=== PATIENT | female | born 1960 | race Caucasian/White ===

== ENCOUNTER 2021-06-17 11:56 | Outpatient (CLI) | payer MEDICARE, MEDICAID, SELFPAY ==
--- NOTE | ~2021-06-17 | PE_ITS ---
EXAMINATION: PET skull to mid thigh DATE: 06/17/2021 13:58 INDICATION: Carcinoma of supraglottic larynx. TECHNIQUE: Blood glucose level was 154 mg/dL. 10.939 mCi of 18-fluorodeoxyglucose (18-FDG) was admini stered i.v. Low dose computed tomography (CT) images were acquired from the base of the brain to the proximal thighs for attenuation correction and anatomic localization. Automated exposure control was employed. Dose-length product (DLP) was 1218 mGy-cm. Positron emission tomography (PET) images were a cquired in the same distribution. COMPARISON: CT abdomen and pelvis 08/29/2005 FINDINGS: Head/neck: There is increased activity in the oral cavity, floor of mouth, muscles of mastication, gl ottis, paraspinal muscles, and scalene muscles without abnormal CT correlate, likely physiologic. The re is thickening of the mucosal space of the pharynx and larynx without increased activity, likely ch anges of radiation therapy. There are no pathologically enlarged lymph nodes. Chest: There is mild atelectasis in the lungs. No pleural effusion. The heart size is normal. No chang cardial effusion. There are no pathologically enlarged lymph nodes. There is increased activity in so me of the musculature with abnormal CT correlate, likely physiologic. Abdomen/pelvis/proximal thighs: The liver demonstrates surface nodularity. There is moderate splenome balaji. There are gallstones in the gallbladder, which is normal in size. The adrenal glands and kidney s are normal. There are no dilated loops of bowel. There is no free intraperitoneal fluid. There are no pathologically enlarged lymph nodes. There is no free intraperitoneal fluid. There is no osseous m alignancy. IMPRESSION: 1. No evidence of metastatic disease. 2. Liver surface nodularity suspicious for cirrhosis. 3. Moderate splenomegaly. Reviewed, dictated and finalized at location B. SUPERVISOR
[2021-06-17 12:24] LABS: Glucose Point of Care 154 mg/dl (65-105)
== END 2021-06-17 11:57 | disposition home or self-care (01) ==
LOC: ANHIMG 12:02
PROVIDERS: Visit Provider Radiology Radiation Oncology
DX: C32.1 Malignant neoplasm of supraglottis (principal); Z92.3 Personal history of irradiation; R16.1 Splenomegaly, not elsewhere classified
CPT/HCPCS: 78815; A9552

== ENCOUNTER 2021-08-11 14:00 | Outpatient (RCR) | payer MEDICARE, MEDICAID, SELFPAY ==
--- NOTE | 2021-07-23 13:45 | PTOPEVAL ---
PHYSICAL THERAPY EVALUATION AND PLAN OF CARE 07-23-21 Thank you for referring Rhoda Michelle to [facility].? She is scheduled to be seen for therapy? 1x/week for 6 weeks. Due to transportation issues, she request only once/wk. Please review, sign, date and return this plan of care NATALIA. I agree with and certify that the following plan of care is medically necessary. Referring Physician Date Attending Provider: Andrea Gusman MD Past Medical History Source of Past Medical History Patient Neurological History Hx Neurological Disorders No Significant History Cardiovascular History Hx Cardiac Disorders No Significant History Respiratory History Hx Chronic Obstructive Pulmonary Disease Yes (COPD) Hx Sleep Apnea Yes: BiPap at night, oxygen at night Hx Other Respiratory Disorders Yes: allergies and sinus issues, since a child- Gastrointestinal History Hx Gastrointestinal Disorders No Significant History Genitourinary History Hx Other Genitourinary Disorders Yes: urinary incontinence Musculoskeletal History Hx Arthritis Yes: hands,R elbow, knees, feet, hips Hx Back Pain Yes Hx Orthopedic Surgery Yes: L foot fracture/ORIF Endocrine History Hx Diabetes Yes: meds Reproductive History Hx Other Reproductive Disorders Yes: hysterectomy, exploratory surgery prior to hysterectomy Other History Hx Other Medical Conditions Yes: obesity Evaluation Information Problem Diagnosis lymphedema of head/neck/face Onset Feb 2021 Prior Level of Function Activity Level (Last 3 Months) Occupation disabled due to COPD Activity of Daily Living Ability Independent Indoor/Home Mobility Independent Community Mobility Independent Stairs Ability Independent Functional Cognition (Planning, Shopping Independent , Taking Medications) Cooking Yes Cleaning Yes Laundry Yes Shopping Yes Driving Yes Comments Additional Prior Level of Function 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
--- NOTE | 2021-08-11 15:41 | PCPTNOTE ---
pt signed consent for her info to be released to [employer] for compression garment; I faxed her face sheet, eval and dr order to [facility] [facility] and request for a Large Sigvaris compression garment for neck and mandible.
--- NOTE | 2021-08-18 09:26 | PCPTNOTE ---
pt called and canceled today's appt, I received message 5 minutes before her appt time;
--- NOTE | 2021-09-03 11:44 | PCPTNOTE ---
pt has not been here since 08-11-21 for treatment, called pt to check on her; she stated her car broke down and does not have a way to get to therapy. Stated she wants to continue therapy. Discussed with her the need to return soon, due to plan of care is up. Discussed the compression garment and self MLD with her, she reports she cannot afford the compression garment. She understands that it is important. Instructed her to call NATALIA when she can get in for therapy.
--- NOTE | 2021-09-23 09:16 | PCPTNOTE ---
PHYSICAL THERAPY DISCHARGE 09-23-21 Attending Provider: Andrea Gusman MD Patient:Rhoda Michelle Date of :1960 Rhoda has not returned for any further treatments since 08/11/2021, therefore she will be discharged at this time. She received the PT evaluation and one treatment session for the diagnosis of lymphedema. She called and canceled one appointment, then did not return for any further treatment. The goals were not assessed. Thank you for referring Ms. Michelle to [facility]. Please review, sign, date and return this discharge summary NATALIA. I have been updated about the patient's current status and I agree with discharge from the above service at this time. Referring Physician Date
== END 2021-09-23 16:22 | disposition home or self-care (01) ==
LOC: ANHPT 14:00
PROVIDERS: Visit Provider Radiology Radiation Oncology
DX: J38.4 Edema of larynx (principal); Z92.3 Personal history of irradiation; Z85.21 Personal history of malignant neoplasm of larynx; T66.XXXD Radiation sickness, unspecified, subsequent encounter
CPT/HCPCS: 97140; 97161

== ENCOUNTER 2022-10-14 14:42 | Inpatient (IN) | payer MEDICARE, MEDICAID, SELFPAY ==
[2022-10-14] VITALS (27 sets, daily range): BP systolic 154–189; BP diastolic 52–90; PULSE 80–98; RESP 18–32; TEMP 36.1–37.2; O2SAT 88–100; BMI 46.7
--- NOTE | ~2022-10-14 | XR_ITS ---
XR chest 2V 10/14/2022 15:29 Indication: Dyspnea with shortness of breath Procedure: 2 view chest Comparison: 08/08/2007 Findings: Cardiomegaly. There are patchy bilateral infiltrates of the mid and lower lungs. No signifi cant effusion. No pneumothorax. No acute osseous abnormality. Impression: 1: Patchy bilateral infiltrates of the mid and lower lungs may represent atelectasis or developing pn eumonia. Reviewed, dictated and finalized at location B. Impression: 1: Patchy bilateral infiltrates of the mid and lower lungs may represent atelec tasis or developing pneumonia.
--- NOTE | 2022-10-14 14:51 | ECG_ITS ---
Measurements Intervals [place] Rate: 92 P: 56 WA: 187 QRS: 48 QRSD: 140 T: 27 QT: 355 QTc: 441 Interpretive Statements SINUS RHYTHM RIGHT BUNDLE BRANCH BLOCK BASELINE ARTIFACT- I, II, III, AVR, AVL, AVF, V1-V6 ABNORMAL ECG NO PREVIOUS ECG AVAILABLE FOR COMPARISON Electronically Signed On 10-14-2022 15:24:50 CDT by Jose Taylor D.O.
[2022-10-14 15:10] LABS: Basophils Percent Auto 0.5 % (0.2-1.2); Eosinophils Absolute Auto 0.1 K/mm3 (0-0.3); Eosinophils Percent Auto 1.1 % (0-4.4); Hematocrit 49.6 % (37.0-47.0); Hemoglobin 14.9 g/dL (12.0-15.0); Immature Granulocyte Absolute 0.05 K/mm3 (0.00-0.031); Immature Granulocyte Percent A 0.9 % (0-0.5); Immature Platelet Fraction Pct 6.7 % (0.9-11.2); Lymphocytes Percent Auto 12.4 % (18.3-44.2); Mean Corpuscular Hemoglobin 30.6 pg (26-34); Mean Corpuscular Volume 101.8 fl (80-100); Mean Platelet Volume 10.8 fl (7.4-10.4); Monocytes Absolute Auto 0.4 K/mm3 (0.1-0.6); Monocytes Percent Auto 6.5 % (2.6-8.5); Neutrophils Absolute Auto 4.5 K/mm3 (1.3-6.7); Neutrophils Percent Auto 78.6 % (45.5-73.1); Platelet Count Result 140 k/mm3 (150-375); Red Blood Count 4.87 M/mm3 (4.2-5.4); Red Cell Distribution Width 14.4 % (11.5-14.5); White Blood Count 5.7 K/mm3 (4.5-10.0)
[2022-10-14 15:22] LABS: Alanine Aminotransferase 39 U/L (6-35); Albumin Level 3.9 g/dL (3.5-5.1); Alkaline Phosphatase 98 U/L (38-126); Aspartate Amino Transferase 36 U/L (14-36); Bilirubin,Total 0.6 mg/dL (0.2-1.3); Blood Urea Nitrogen 15 mg/dL (7-17); Calcium 8.8 mg/dL (8.4-10.2); Carbon Dioxide > 40 mmol/L (22-30); Chloride 99 mmol/L (98-107); Estimated CRCL calculation 100 ml/min; Estimated Glomerular Filt Rate > 60; Glucose 116 mg/dL (65-110); Potassium 4.5 mmol/L (3.4-5.0); Sodium 139 mmol/L (137-145)
[2022-10-14 15:28] LABS: NT Pro B Type Natriuretic Pept 1020 pg/mL (19.9-100)
[2022-10-14] MEDS: ALBUTEROL SULFATE NEB 2.5 MG/3 ML INH 10 MG INHALATION (15:38)
[2022-10-14] MEDS: IPRATROPIUM BR 0.02% INH SOLN 0.5 MG/2.5 ML VIAL 1 MG INHALATION (15:38)
[2022-10-14] MEDS: methylPREDNISolone SOD SUCC 125 MG VIAL IV PUSH (15:40)
[2022-10-14 15:41] LABS: Influenza A QL RT-PCR Negative (Negative); Influenza B QL RT-PCR Negative (Negative); RSV RNA, RT-PCR Negative (Negative); SARS-CoV-2 RNA PCR Negative (Negative)
[2022-10-14 15:52] LABS: Alveolar/Arterial O2 Gradient 126.5 mmHg; Base Excess ABG 3.8 mEq/l (+/-2.0); Carboxyhemoglobin 4.9 % THb (0-2.0); Fractional Inspired Oxygen 38 %; HCO3 ABG 33.2 mEq/l (22.0-26.0); Methemoglobin ABG 0.3 %THb (0-1.5); Oxygen Content ABG 17.8 %vol (16.0-22.0); PO2 ABG 61.1 mmHg (80.0-100.0); PO2 FiO2 Ratio Arterial Blood 1.61 %; Reduced Hemoglobin 11.1 %THb (0-5.0); Total Hemoglobin 15.1 g/dL (12.0-18.0)
[2022-10-14 15:55] LABS: PCO2 ABG 72.2 mmHg (35.0-45.0)
[2022-10-14 15:56] LABS: Device NASAL CANNULA; Liters per Minute 4.5 LPM; Modified Allen's Test Pass; Oxygen Saturation ABG 87.4 % (95.0-100.0); Oxyhemoglobin 83.7 % THb (90.0-100.0); Site Drawn RIGHT RADIAL
[2022-10-14] MEDS: FUROSEMIDE INJ 40 MG/4 ML VIAL IV PUSH (16:22)
--- NOTE | 2022-10-14 16:37 | ED.SOB ---
HPI - SOB/Dyspnea General Chief Complaint: Shortness of Breath/Dyspnea Stated Complaint: SOB Time Seen by Provider: 10/14/22 15:21 Source: patient, EMS and RN notes reviewed Mode of arrival: EMS Limitations: no limitations History of Present Illness HPI Narrative: This is a 61 year old female with history of COPD, CHF, obstructive sleep apnea who presents for evaluation of shortness of breath. PAtient reports starting 3 days ago she developed runny nose, congestion, shortness of breath and nonproductive cough. She states she has been unable to find her nebulizer or inhalers. She wears CPAP with 3 L NC at night but she does not wear oxygen during the day. She went to PCP today and she was found to be 62% on room air. SHe was placed on 2.5 L NC. She denies chest pain, fever, chills, nausea, vomiting or worsening swelling. Related Data Allergies Allergy/AdvReac Type Severity Reaction Status Date / Time No Known Allergies Allergy Unknown Unverified 06/20/19 15:35 Review of Systems Constitutional: Constitutional: Denies weakness ENT: Reports nasal congestion Cardiovascular: Cardiovascular: Denies syncope, Denies rapid heart rate, Denies irregular heart rhythm, Denies leg edema and Reports dyspnea Respiratory: Respiratory: Denies chest congestion, Reports cough, Denies hemoptysis, Denies excessive phlegm production, Reports dyspnea and Reports wheezing Gastrointestinal: Gastrointestinal: Denies abdominal pain, Denies hematochezia, Denies diarrhea and Denies vomiting Genitourinary: Genitourinary: Denies hematuria and Denies dysuria Musculoskeletal: Musculoskeletal: Denies joint swelling, Denies loss of height and Denies muscle weakness Neurologic: Denies syncope, Denies focal weakness and Denies weakness PMF Past Medical History Medical History (Updated 10/14/22 @ 16:55 by Sadie Neumann MD) CHF (congestive heart failure) COPD (chronic obstructive pulmonary disease) Sleep apnea Surgical History Surgical History (Updated 10/14/22 @ 16:49 by Sadie Neumann MD) H/O: hysterectomy Social History Social History (Updated 10/14/22 @ 16:49 by Sadie Neumann MD) Smoking packs per day: 1 Smoking cigarettes per day: 20.0 Smoking status: Current every day smoker Exam Const: General: no acute distress Nutritional Appearance: obese Orientation/consciousness: patient oriented x3 Other: lethargic HENMT: Head: normal to inspection Mouth: Yes Normal oral and palatal mucosa present, Yes lip normal and Yes moist mucous membranes Eyes: EOM: EOMs intact bilaterally Chest: Chest palpation & inspection: normal inspection of the chest Resp: Effort & Inspection: normal respiratory effort Auscultation: wheezes expiratory wheezes and throughout Cardio: Rate: regular rate Rhythm: regular rhythm Heart sounds: no murmurs GI: GI Palp: Yes Soft to palpation, No Tenderness to palpation present (GI), No Guarding due to palpation present (GI) and No Rigid due to palpation Auscultation: normal bowel sounds Skin: General skin exam: normal color Rashes: no rashes Wounds: no wounds Neuro: General: patient oriented x3, moves all extremities and CN's II-XI intact bilaterally Cranial nerves: Yes Nystagmus not present Speech: normal speech Gait exam (Neuro): Normal gait present Extrem: General: normal to inspection Psych: Mental Status: mental status grossly normal Affect: normal affect Attitude: cooperative Course Reevaluation(s) Reevaluation #1: I Discussed with patient that she will be admitted. Chest xray shows possible pneumonia so she has been started on antibiotics. She is on bipap at this time. Date: 10/14/22 Time: 16:50 Consultations Consultation #1: I Discussed with Yenni Chaudhry and she accepts patient to IMU Date: 10/14/22 Time: 16:46 Vital Signs Vital signs: Vital Signs Pulse Oximetry 95 10/14/22 14:59 Oxygen Delivery Nasal Cannula 10/14/22 14:59 Oxygen Flow Rate
[2022-10-14] MEDS: AZITHROMYCIN 500 MG/NS 250 ML 500 MG/250 ML BAG 250 MG IVPB (16:42)
[2022-10-14 16:55] LABS: Glucose Point of Care 106 mg/dl (65-105)
--- NOTE | 2022-10-14 17:34 | PM.IMHP ---
H&P: HPI History of Present Illness Date/Time: 10/14/22 17:34 Chief Complaint: shortness of breath Narrative: this is a 61-year-old female patient who has a history of COPD, CHF and obstructive sleep apnea. The patient does not typically wear oxygen at home and only uses the oxygen with her CPAP machine at night on 3 L per nasal cannula. The patient stated that 3 days ago her symptoms started with a runny nose, shortness of breath congestion and nonproductive cough. Patient has not been able to find her nebulizer are her inhalers. She has been using her CPAP at night but does not use it during the day. Today she went to her primary care doctor's office and was found to be 62% on room air. She was placed on oxygen at 2.5 L per nasal cannula. She denies any fever chills nausea vomiting diarrhea. She does have edema to her lower extremities. Chest x-ray was read as patchy bilateral infiltrates of the mid and lower lungs may represent atelectasis or developing pneumonia. Her platelets are low at 140. ABGs pH 7.280, pCO2 72.2, PO2 61.1 and O2 saturation 87.4. The patient was placed on a BiPAP machine 14/6 with a rate of 20. She is also diabetic and her blood sugar was 106 and then 307. She was negative for influenza A/B And COVID. She was given nebulizer treatments, Solu-Medrol, Rocephin, a azithromycin, and Lasix. The patient is being admitted to inpatient status on the date of service of 10/14/2022. Review of Systems Review of Systems: All systems reviewed & are unremarkable except as noted in HPI and below Constitutional: Constitutional: Reports as per HPI and Reports no additional constitutional complaints Eyes: Eyes: Reports as per HPI and Reports no additional eye complaints ENT: Reports system reviewed and no additional complaints, except as documented and Reports Normal hearing present Cardiovascular: Cardiovascular: Reports no additional cardiovascular complaints Respiratory: Respiratory: Reports no additional respiratory complaints and Reports no additional respiratory complaints Gastrointestinal: Gastrointestinal: Reports as per HPI and Reports no additional gastrointestinal complaints Musculoskeletal: Musculoskeletal: Reports no additional musculoskeletal complaints Integumentary/Breasts: Skin/Breast: Reports system reviewed and no additional complaints, except as docu and Reports as per HPI Neurologic: Reports system reviewed and no additional complaints, except as documented, Reports as per HPI and Reports Normal hearing present Psychiatric: Psychiatric: Reports no additional psychiatric complaints and Reports as per HPI Endocrine: Endocrine: Reports no additional endocrine complaints Hematologic/Lymphatic: Hematologic/Lymphatic: Reports no additional hematologic/lymphatic complaints Allergic/Immunologic: Allergic/Immunologic: Reports no additional allergic/immunologic complaints [facility], [facility] Past Medical History Medical History (Updated 10/14/22 @ 21:52 by Yenni Chaudhry NP) CHF (congestive heart failure) COPD (chronic obstructive pulmonary disease) DM2 (diabetes mellitus, type 2) Sleep apnea Surgical History Surgical History (Updated 10/14/22 @ 21:45 by Yenni Chaudhry NP) H/O dilation and curettage left foot pinning H/O: hysterectomy S/P ORIF (open reduction internal fixation) fracture Family History Family History Father Chronic obstructive pulmonary disease Sibling Chronic obstructive pulmonary disease Mother Asthma Social History Social History (Updated 10/14/22 @ 21:48 by Yenni Chaudhry NP) Social History: smokes some maybe half a pack a cigarettes a day. She has no children. She is single/ and lives with her boyfriend and [place]. She denies any alcohol marijuana or illicit drugs. she is disabled. Cynthia Medel her sister is the contact Code status full code Smoking packs per day: 0.5 Smoking
--- NOTE | 2022-10-14 18:49 | ADMGEN ---
This patient, Rhoda Michelle, was admitted to IMU Room 209-01 on 10/14/22 at 1838. Patient/family oriented to hospital policies and general routines including ID bracelet, bed and alarms, visiting hours, pain management, procedures, bathroom and other care routines, personal items, smoking policy, room service/diet, and visiting hours. Information on how to activate the Rapid Response Team has been discussed. Patient/Family are encouraged to report perceived risks to care and to ask questions if they do not understand what they are told or what they should do.
[2022-10-14] MEDS: IPRATROPIUM BR 0.02% INH SOLN 0.5 MG/2.5 ML VIAL INHALATION (19:54)
[2022-10-14] MEDS: LEVALBUTEROL NEB 1.25 MG/3 ML 0.63 MG INHALATION (19:54)
[2022-10-14 20:14] LABS: Glucose Point of Care 307 mg/dl (65-105)
[2022-10-14 21:56] LABS: Fractional Inspired Oxygen 45 %; Total Hemoglobin 15.4 g/dL (12.0-18.0)
[2022-10-14 22:01] LABS: Base Excess ABG 7.2 mEq/l (+/-2.0); HCO3 ABG 38.2 mEq/l (22.0-26.0); Oxygen Content ABG 20.3 %vol (16.0-22.0); Oxygen Saturation ABG 95.8 % (95.0-100.0); PO2 ABG 95.3 mmHg (80.0-100.0)
[2022-10-14 22:02] LABS: Oxyhemoglobin 93.6 % THb (90.0-100.0); PO2 FiO2 Ratio Arterial Blood 2.12 %
[2022-10-14 22:06] LABS: PCO2 ABG 87.5 mmHg (35.0-45.0); pH ABG 7.258 (7.350-7.450)
[2022-10-14 22:07] LABS: Device NON-INVASIVE VENT; Modified Allen's Test Pass; Non-Invasive Expiratory Pressure 6 CMH2O; Non-Invasive Inspiratory Pressure 14 CMH2O; Non-Invasive Vent Rate 20 /MIN; Site Drawn RIGHT RADIAL
[2022-10-14] MEDS: methylPREDNISolone SOD SUCC 125 MG VIAL 80 MG IV PUSH (22:19)
[2022-10-15] VITALS (26 sets, daily range): BP systolic 134–152; BP diastolic 57–81; PULSE 77–99; RESP 16–28; TEMP 36.2–36.8; O2SAT 89–100
--- NOTE | 2022-10-15 | ECHO_ITS ---
Patient Info Name: Rhoda Michelle Age: 61 years : 1960 Gender: Female Ht: 60 in Wt: 238 lbs BSA: 2.21 m2 HR: 85 bpm BP: 143 / 67 mmHg Technical Quality: Poor Exam Date: 10/15/2022 10:37 AM Exam Location: [facility] Patient Status: Inpatient Admit Date: 10/14/2022 Staff Ordering Physician: Yenni Chaudhry NP Ad Writer: Thao Suarez RDCS Attending Provider: Nabil Stiles MD Referring Physician: Isidoro ZAMORA; Exam Type: CA echo doppler color flow Study Info Indications J81.1 - Chronic pulmonary edema Complete two-dimensional, color flow and Doppler transthoracic echocardiogram is performed. Summary 1. Complete two-dimensional, color flow and Doppler transthoracic echocardiogram is performed. 2. Technically suboptimal study due to poor sonographic images. 3. Left ventricular chamber dimension is normal. 4. Left ventricular systolic function is normal, estimated at 60-65%. 5. There is moderate concentric increased left ventricular wall thickness. 6. The left ventricular diastolic function is grade I diastolic dysfunction. 7. Left atrial chamber dimension is mildly enlarged. 8. The mitral valve has moderately calcified annulus. Left Ventricle Tissue doppler E/e' not performed. Technically suboptimal study due to poor sonographic images. Left ventricular chamber dimension is normal. Left ventricular systolic function is normal, estimated at 60-65%. There is moderate concentric increased left ventricular wall thickness. The left ventricular diastolic function is grade I diastolic dysfunction. Right Ventricle Right ventricular chamber dimension is not well visualized. Right ventricular systolic function is normal. Left Atria Left atrial chamber dimension is mildly enlarged. Right Atria Right atrial chamber dimension is not well visualized. Aortic Valve The aortic valve is probable trileaflet. There is no aortic valve stenosis. There is no aortic valve regurgitation. Pulmonic Valve The pulmonic valve is not well visualized. Mitral Valve The mitral valve has moderately calcified annulus. There is no mitral valve stenosis. There is no mitral valve regurgitation. Tricuspid Valve The tricuspid valve leaflets are not well visualized. There is no tricuspid valve regurgitation. Pericardium/Pleural There is no pericardial effusion. Inferior Vena Cava Inferior vena cava is not well visualized. Aorta The aortic root size at the sinus of Valsalva is not well visualized. Left Ventricular Outflow Tract Name Value Normal LVOT Doppler LVOT Peak Gradient 3 mmHg LVOT Mean Gradient 2 mmHg LVOT VTI 22 cm LVOT VTI/AV VTI Ratio 0.8 Pulmonic Valve Name Value Normal PV Doppler PV Peak Gradient 7 mmHg Aortic Valve Name Value Normal
[2022-10-15 00:40] LABS: Base Excess ABG 6.7 mEq/l (+/-2.0); Fractional Inspired Oxygen 40 %; HCO3 ABG 35.6 mEq/l (22.0-26.0); Methemoglobin ABG 0.4 %THb (0-1.5); Oxygen Content ABG 19.2 %vol (16.0-22.0); Oxygen Saturation ABG 92.9 % (95.0-100.0); Oxyhemoglobin 91.2 % THb (90.0-100.0); PO2 FiO2 Ratio Arterial Blood 1.83 %; Reduced Hemoglobin 6.4 %THb (0-5.0)
[2022-10-15 00:42] LABS: Device NON-INVASIVE VENT; Modified Allen's Test Pass; Non-Invasive Inspiratory Pressure 16 CMH2O; Non-Invasive Vent Rate 20 /MIN; PCO2 ABG 70.6 mmHg (35.0-45.0); Site Drawn RIGHT RADIAL
[2022-10-15 00:43] LABS: Non-Invasive Expiratory Pressure 8 CMH2O
[2022-10-15] MEDS: IPRATROPIUM BR 0.02% INH SOLN 0.5 MG/2.5 ML VIAL INHALATION ×4 (00:56→21:09)
[2022-10-15] MEDS: LEVALBUTEROL NEB 1.25 MG/3 ML 0.63 MG INHALATION ×4 (00:56→21:09)
[2022-10-15 02:20] LABS: Glucose Point of Care 282 mg/dl (65-105)
[2022-10-15 05:03] LABS: Eosinophils Percent Auto 0.2 % (0-4.4); Hematocrit 46.1 % (37.0-47.0); Hemoglobin 14.1 g/dL (12.0-15.0); Immature Granulocyte Absolute 0.06 K/mm3 (0.00-0.031); Immature Granulocyte Percent A 1.2 % (0-0.5); Immature Platelet Fraction Pct 6.7 % (0.9-11.2); Lymphocytes Absolute Auto 0.33 K/mm3 (0.9-3.2); Lymphocytes Percent Auto 6.6 % (18.3-44.2); Mean Corpuscular HGB Conc 30.6 g/dl (32-36); Mean Corpuscular Hemoglobin 30.7 pg (26-34); Mean Corpuscular Volume 100.2 fl (80-100); Mean Platelet Volume 11.1 fl (7.4-10.4); Monocytes Absolute Auto 0.1 K/mm3 (0.1-0.6); Neutrophils Absolute Auto 4.5 K/mm3 (1.3-6.7); Nucleated Red Blood Cells Perc 0.4 % (0.0-0.2); Platelet Count Result 128 k/mm3 (150-375); Red Cell Distribution Width 14.1 % (11.5-14.5)
[2022-10-15 05:12] LABS: Alanine Aminotransferase 35 U/L (6-35); Albumin Level 3.8 g/dL (3.5-5.1); Alkaline Phosphatase 88 U/L (38-126); Anion Gap 2 mmol/L (8-16); Aspartate Amino Transferase 31 U/L (14-36); Bilirubin,Total 0.5 mg/dL (0.2-1.3); Blood Urea Nitrogen 22 mg/dL (7-17); Calcium 8.6 mg/dL (8.4-10.2); Carbon Dioxide 38 mmol/L (22-30); Chloride 96 mmol/L (98-107); Estimated CRCL calculation 80 ml/min; Estimated Glomerular Filt Rate > 60; Glucose 404 mg/dL (65-110); Potassium 4.9 mmol/L (3.4-5.0); Sodium 136 mmol/L (137-145)
[2022-10-15 05:33] LABS: Hemoglobin A1C 6.4 % (<5.7)
[2022-10-15] MEDS: methylPREDNISolone SOD SUCC 125 MG VIAL 80 MG IV PUSH (05:48)
[2022-10-15 06:11] LABS: Alveolar/Arterial O2 Gradient 121.2 mmHg; Base Excess ABG 8.6 mEq/l (+/-2.0); Fractional Inspired Oxygen 40 %; HCO3 ABG 38.7 mEq/l (22.0-26.0); Oxygen Content ABG 18.8 %vol (16.0-22.0); Oxygen Saturation ABG 91.6 % (95.0-100.0); Oxyhemoglobin 91.1 % THb (90.0-100.0); PO2 ABG 70.7 mmHg (80.0-100.0); PO2 FiO2 Ratio Arterial Blood 1.77 %; Total Hemoglobin 14.7 g/dL (12.0-18.0)
[2022-10-15 06:18] LABS: Device BIPAP; Expiratory Pressure 8 cmH2O; Inspiratory Pressure 16 cmH2O; Modified Allen's Test Pass; PCO2 ABG 81.1 mmHg (35.0-45.0); Site Drawn RIGHT RADIAL; pH ABG 7.296 (7.350-7.450)
[2022-10-15 07:55] LABS: Glucose Point of Care 322 mg/dl (65-105)
[2022-10-15] MEDS: INSULIN ASPART (*BKC) 100 UNITS/ML SUB-Q ×4 (08:52→20:44)
[2022-10-15] MEDS: FUROSEMIDE INJ 40 MG/4 ML VIAL IV PUSH (08:53)
[2022-10-15] MEDS: ENOXAPARIN 40 MG/0.4 ML SYRINGE SUB-Q (08:53)
--- NOTE | 2022-10-15 11:12 | PM.IMPN ---
Progress Note: A&P Assessment and Plan (1) Community acquired pneumonia: Code(s): J18.9 - Pneumonia, unspecified organism Status: Acute Assessment and Plan: as per antibiotic stewardship for community-acquired pneumonia. The patient was started on azithromycin Rocephin. Continue with nebulizer treatments. The patient is currently on a BiPAP machine for hypercapnia and hypoxia Sputum and blood cultures are pending. Tailor antibiotics according to cultures and sensitivities. (2) COPD (chronic obstructive pulmonary disease): Code(s): J44.9 - Chronic obstructive pulmonary disease, unspecified Status: Acute Assessment and Plan: discontinue IV Solu-Medrol. started on oral prednisone The patient is currently on a BiPAP machine due to hypoxia and hypercapnia. Continue with nebulizer treatments. continue with home inhalers (3) CHF (congestive heart failure): Code(s): I50.9 - Heart failure, unspecified Status: Acute Assessment and Plan: Continue IV Lasix echo is pending (4) DM2 (diabetes mellitus, type 2): Code(s): E11.9 - Type 2 diabetes mellitus without complications Status: Acute Assessment and Plan: Accu-Cheks AC and HS with sliding scale insulin. Hypoglycemic protocol check A1c. (5) Acute respiratory failure with hypoxia and hypercapnia: Code(s): J96.01 - Acute respiratory failure with hypoxia; J96.02 - Acute respiratory failure with hypercapnia Status: Acute Assessment and Plan: the patient is currently on a BiPAP Subjective Date/time seen: 10/15/22 11:12 Interval history: patient's breathing is better Review of Systems Review of Systems: All systems reviewed & are unremarkable except as noted in HPI and below Constitutional: Constitutional: Reports as per HPI and Reports no additional constitutional complaints Eyes: Eyes: Reports as per HPI and Reports no additional eye complaints ENT: Reports system reviewed and no additional complaints, except as documented and Reports Normal hearing present Cardiovascular: Cardiovascular: Reports no additional cardiovascular complaints Respiratory: Respiratory: Reports no additional respiratory complaints and Reports no additional respiratory complaints Gastrointestinal: Gastrointestinal: Reports as per HPI and Reports no additional gastrointestinal complaints Musculoskeletal: Musculoskeletal: Reports no additional musculoskeletal complaints Integumentary/Breasts: Skin/Breast: Reports system reviewed and no additional complaints, except as docu and Reports as per HPI Neurologic: Reports system reviewed and no additional complaints, except as documented, Reports as per HPI and Reports Normal hearing present Psychiatric: Psychiatric: Reports no additional psychiatric complaints and Reports as per HPI Endocrine: Endocrine: Reports no additional endocrine complaints Hematologic/Lymphatic: Hematologic/Lymphatic: Reports no additional hematologic/lymphatic complaints Allergic/Immunologic: Allergic/Immunologic: Reports no additional allergic/immunologic complaints Exam Const: General: cooperative, comfortable, no acute distress, well developed, alert, awake, Physically active and overweight Nutritional Appearance: well nourished and overweight Orientation/consciousness: oriented to person, oriented to place, oriented to time and patient oriented x3 Limitations: no limitations HENMT: Head: normal to inspection, No palpable skull fracture present, normocephalic and atraumatic Ears: hearing grossly normal bilaterally and external ears normal Face/Nose/Sinus: Normal external nose present and Normal nares present Eyes: General: appearance normal, both eyes and all related structures Alignment and Position: alignment normal Periorbital: periorbital findings normal Eyelids: eyelids normal Sclera: sclerae normal Pupils: Equal, round and reactive pupils present
[2022-10-15 12:09] LABS: Glucose Point of Care 269 mg/dl (65-105)
[2022-10-15] MEDS: predniSONE 20 MG TABLET 40 MG PO (13:17)
[2022-10-15] MEDS: GABAPENTIN 100 MG CAPSULE PO ×2 (13:17→17:30)
[2022-10-15] MEDS: busPIRone HCL 5 MG TABLET PO ×2 (13:17→17:30)
[2022-10-15 16:25] LABS: Glucose Point of Care 243 mg/dl (65-105)
[2022-10-15] MEDS: AZITHROMYCIN 500 MG/NS 250 ML 500 MG/250 ML BAG 250 MG IVPB (17:30)
[2022-10-15 20:03] LABS: Glucose Point of Care 355 mg/dl (65-105)
[2022-10-15] MEDS: FLUTICASONE/SALMETEROL 115-21 MCG INHALER 1 PUFF 2 PUFF INHALATION (21:17)
[2022-10-15] MEDS: MONTELUKAST SODIUM 10 MG TABLET PO (21:40)
[2022-10-16] VITALS (21 sets, daily range): BP systolic 134–173; BP diastolic 67–87; PULSE 69–97; RESP 16–26; TEMP 35.8–36.8; O2SAT 90–100
[2022-10-16] MEDS: IPRATROPIUM BR 0.02% INH SOLN 0.5 MG/2.5 ML VIAL INHALATION ×4 (02:20→20:48)
[2022-10-16] MEDS: LEVALBUTEROL NEB 1.25 MG/3 ML 0.63 MG INHALATION ×4 (02:21→20:48)
[2022-10-16 08:04] LABS: Glucose Point of Care 225 mg/dl (65-105)
[2022-10-16] MEDS: INSULIN ASPART (*BKC) 100 UNITS/ML SUB-Q ×3 (10:17→20:09)
[2022-10-16] MEDS: busPIRone HCL 5 MG TABLET PO ×2 (10:18→17:55)
[2022-10-16] MEDS: GABAPENTIN 100 MG CAPSULE PO ×3 (10:18→17:55)
[2022-10-16] MEDS: ENOXAPARIN 40 MG/0.4 ML SYRINGE SUB-Q (10:18)
[2022-10-16] MEDS: predniSONE 20 MG TABLET 40 MG PO (10:18)
[2022-10-16] MEDS: FUROSEMIDE INJ 40 MG/4 ML VIAL IV PUSH (10:19)
--- NOTE | 2022-10-16 11:16 | PM.IMPN ---
Progress Note: A&P Assessment and Plan (1) Community acquired pneumonia: Code(s): J18.9 - Pneumonia, unspecified organism Status: Acute Assessment and Plan: as per antibiotic stewardship for community-acquired pneumonia. The patient was started on azithromycin Rocephin. Continue with nebulizer treatments. The patient is currently on a BiPAP machine for hypercapnia and hypoxia Sputum and blood cultures are pending. Tailor antibiotics according to cultures and sensitivities. (2) COPD (chronic obstructive pulmonary disease): Code(s): J44.9 - Chronic obstructive pulmonary disease, unspecified Status: Acute Assessment and Plan: Continue on oral prednisone The patient is currently on a BiPAP machine due to hypoxia and hypercapnia. Continue with nebulizer treatments. continue with home inhalers (3) CHF (congestive heart failure): Code(s): I50.9 - Heart failure, unspecified Status: Acute Assessment and Plan: Continue IV Lasix ECHO: 1. Complete two-dimensional, color flow and Doppler transthoracic echocardiogram is performed. ? 2. Technically suboptimal study due to poor sonographic images. ? 3. Left ventricular chamber dimension is normal. ? 4. Left ventricular systolic function is normal, estimated at 60-65%. ? 5. There is moderate concentric increased left ventricular wall thickness. ? 6. The left ventricular diastolic function is grade I diastolic dysfunction. ? 7. Left atrial chamber dimension is mildly enlarged. ? 8. The mitral valve has moderately calcified annulus. (4) DM2 (diabetes mellitus, type 2): Code(s): E11.9 - Type 2 diabetes mellitus without complications Status: Acute Assessment and Plan: Accu-Cheks AC and HS with sliding scale insulin. Hypoglycemic protocol check A1c. (5) Acute respiratory failure with hypoxia and hypercapnia: Code(s): J96.01 - Acute respiratory failure with hypoxia; J96.02 - Acute respiratory failure with hypercapnia Status: Acute Assessment and Plan: the patient is currently on a BiPAP Subjective Date/time seen: 10/16/22 11:16 Interval history: Breathing a bit better this morning Review of Systems Review of Systems: All systems reviewed & are unremarkable except as noted in HPI and below Constitutional: Constitutional: Reports as per HPI and Reports no additional constitutional complaints Eyes: Eyes: Reports as per HPI and Reports no additional eye complaints ENT: Reports system reviewed and no additional complaints, except as documented and Reports Normal hearing present Cardiovascular: Cardiovascular: Reports no additional cardiovascular complaints Respiratory: Respiratory: Reports no additional respiratory complaints and Reports no additional respiratory complaints Gastrointestinal: Gastrointestinal: Reports as per HPI and Reports no additional gastrointestinal complaints Musculoskeletal: Musculoskeletal: Reports no additional musculoskeletal complaints Integumentary/Breasts: Skin/Breast: Reports system reviewed and no additional complaints, except as docu and Reports as per HPI Neurologic: Reports system reviewed and no additional complaints, except as documented, Reports as per HPI and Reports Normal hearing present Psychiatric: Psychiatric: Reports no additional psychiatric complaints and Reports as per HPI Endocrine: Endocrine: Reports no additional endocrine complaints Hematologic/Lymphatic: Hematologic/Lymphatic: Reports no additional hematologic/lymphatic complaints Allergic/Immunologic: Allergic/Immunologic: Reports no additional allergic/immunologic complaints Exam Const: General: cooperative, comfortable, no acute distress, well developed, alert, awake, Physically active and overweight Nutritional Appearance: well nourished and overweight Orientation/consciousness: oriented to person, oriented to place, oriented to time and patient oriented x3 Limit
[2022-10-16 11:41] LABS: Glucose Point of Care 173 mg/dl (65-105)
[2022-10-16] MEDS: IBUPROFEN 600 MG TABLET PO (15:00)
--- NOTE | 2022-10-16 15:47 | PC.NURSE ---
This patient, Rhoda Michelle, was transferred to [facility] on 10/16/22 at 1547. Personal belongings sent with patient. Report given to TRACY Handley. Appropriate documentation sent with patient.
--- NOTE | 2022-10-16 16:00 | PC.NURSE ---
This patient, Rhoda Michelle, was received from IMU on 10/16/22 at 1600. Patient/family oriented to unit policies and routines
[2022-10-16 17:27] LABS: Glucose Point of Care 280 mg/dl (65-105)
[2022-10-16] MEDS: AZITHROMYCIN 500 MG/NS 250 ML 500 MG/250 ML BAG 250 MG IVPB (18:37)
[2022-10-16] MEDS: MONTELUKAST SODIUM 10 MG TABLET PO (20:08)
[2022-10-16] MEDS: FLUTICASONE/SALMETEROL 115-21 MCG INHALER 1 PUFF 2 PUFF INHALATION (20:48)
[2022-10-16 20:51] LABS: Glucose Point of Care 357 mg/dl (65-105)
[2022-10-17] VITALS (11 sets, daily range): BP systolic 109–165; BP diastolic 56–65; PULSE 63–92; RESP 16–24; TEMP 36.1–36.6; O2SAT 94–100
[2022-10-17] MEDS: IPRATROPIUM BR 0.02% INH SOLN 0.5 MG/2.5 ML VIAL INHALATION ×3 (02:27→13:27)
[2022-10-17] MEDS: LEVALBUTEROL NEB 1.25 MG/3 ML 0.63 MG INHALATION ×3 (02:27→13:27)
[2022-10-17 06:03] LABS: Blood Urea Nitrogen 31 mg/dL (7-17); Calcium 8.8 mg/dL (8.4-10.2); Carbon Dioxide > 40 mmol/L (22-30); Chloride 96 mmol/L (98-107); Estimated CRCL calculation 82 ml/min; Estimated Glomerular Filt Rate > 60; Glucose 106 mg/dL (65-110); Potassium 4.5 mmol/L (3.4-5.0); Sodium 138 mmol/L (137-145)
[2022-10-17] MEDS: FLUTICASONE/SALMETEROL 115-21 MCG INHALER 1 PUFF 2 PUFF INHALATION (07:20)
[2022-10-17 08:19] LABS: Glucose Point of Care 93 mg/dl (65-105)
[2022-10-17] MEDS: busPIRone HCL 5 MG TABLET PO (08:19)
[2022-10-17] MEDS: GABAPENTIN 100 MG CAPSULE PO (08:19)
[2022-10-17] MEDS: FUROSEMIDE 40 MG TABLET PO (08:19)
[2022-10-17] MEDS: predniSONE 20 MG TABLET 40 MG PO (08:19)
[2022-10-17] MEDS: ENOXAPARIN 40 MG/0.4 ML SYRINGE SUB-Q (08:19)
[2022-10-17 12:14] LABS: Glucose Point of Care 239 mg/dl (65-105)
--- NOTE | 2022-10-17 12:38 | PM.DS ---
DS: Admitting Diagnosis Discharge Date 10/17/2022 Admitting Diagnosis shortness of breath DS: Discharge Diagnosis Discharge Diagnosis (1) Community acquired pneumonia: Code(s): J18.9 - Pneumonia, unspecified organism Status: Acute Assessment and Plan: as per antibiotic stewardship for community-acquired pneumonia. The patient was started on azithromycin Rocephin. Continue with nebulizer treatments. The patient is currently on a BiPAP machine for hypercapnia and hypoxia Sputum and blood cultures are pending. pt can be discharged on oral ABX (2) COPD (chronic obstructive pulmonary disease): Code(s): J44.9 - Chronic obstructive pulmonary disease, unspecified Status: Acute Assessment and Plan: Continue on oral prednisone The patient is currently on a BiPAP machine due to hypoxia and hypercapnia. Continue with nebulizer treatments. continue with home inhalers, pt can be DC on oral steroids (3) CHF (congestive heart failure): Code(s): I50.9 - Heart failure, unspecified Status: Acute Assessment and Plan: Continue IV Lasix transitioned to oral lasix ECHO: 1. Complete two-dimensional, color flow and Doppler transthoracic echocardiogram is performed. ? 2. Technically suboptimal study due to poor sonographic images. ? 3. Left ventricular chamber dimension is normal. ? 4. Left ventricular systolic function is normal, estimated at 60-65%. ? 5. There is moderate concentric increased left ventricular wall thickness. ? 6. The left ventricular diastolic function is grade I diastolic dysfunction. ? 7. Left atrial chamber dimension is mildly enlarged. ? 8. The mitral valve has moderately calcified annulus. (4) DM2 (diabetes mellitus, type 2): Code(s): E11.9 - Type 2 diabetes mellitus without complications Status: Acute Assessment and Plan: Accu-Cheks AC and HS with sliding scale insulin. Hypoglycemic protocol check A1c. (5) Acute respiratory failure with hypoxia and hypercapnia: Code(s): J96.01 - Acute respiratory failure with hypoxia; J96.02 - Acute respiratory failure with hypercapnia Status: Acute Assessment and Plan: the patient is currently on a BiPAP DS: Summary Hospital Course Hospital Course: 61-year-old female patient who has a history of COPD, CHF and obstructive sleep apnea.? The patient does not typically wear oxygen at home and only uses the oxygen with her CPAP machine at night on 3 L per nasal cannula.? The patient stated that 3 days ago her symptoms started with a runny nose, shortness of breath congestion and nonproductive cough.? Patient has not been able to find her nebulizer are her inhalers.? She has been using her CPAP at night but does not use it during the day.? Today she went to her primary care doctor's office and was found to be 62% on room air.? She was placed on oxygen at 2.5 L per nasal cannula.? She denies any fever chills nausea vomiting diarrhea.? She does have edema to her lower extremities.? Chest x-ray was read as patchy bilateral infiltrates of the mid and lower lungs may represent atelectasis or developing pneumonia.? Her platelets are low at 140.? ABGs pH 7.280, pCO2 72.2, PO2 61.1 and O2 saturation 87.4.? The patient was placed on a BiPAP machine 16/11 with a rate of 20.? She is also diabetic and her blood sugar was 106 and then 307.? She was negative for influenza A/B ? And COVID.? She was given nebulizer treatments, Solu-Medrol, Rocephin, a azithromycin, and Lasix.? The patient is being admitted to inpatient status on the date of service of 10/14/2022. Time Spent with Patient Time attestation: Total time spent providing and/or coordinating discharge services:40 minutes on day of discharge Exam Const: General: cooperative, healthy appearing, comfortable, no acute distress, well developed, alert, awake, Physically active, average body habitus, well nourished and overweight Nutritional Appearance:
== END 2022-10-17 14:25 | disposition home or self-care (01) | DRG 193 ==
LOC: ANHED 15:21 → ANHIMU 17:40 → ANH3MED 10-16 16:18
PROVIDERS: Emergency Medicine; Hospitalist; Internal Medicine; Nurse Practitioner; Admitting Provider Family Medicine; Emergency Provider General Practice; PCP Family Medicine; Visit Provider Family Medicine
DX: J18.9 Pneumonia, unspecified organism (principal); I50.33 Acute on chronic diastolic (congestive) heart failure; J96.01 Acute respiratory failure with hypoxia; J96.02 Acute respiratory failure with hypercapnia; J44.0 Chronic obstructive pulmonary disease with (acute) lower respiratory infection; Z68.42 Body mass index [BMI] 45.0-49.9, adult; Z20.822 Contact with and (suspected) exposure to COVID-19; G47.33 Obstructive sleep apnea (adult) (pediatric); E11.9 Type 2 diabetes mellitus without complications; E66.9 Obesity, unspecified; Z90.710 Acquired absence of both cervix and uterus
CPT/HCPCS: 36415; 36600; 71046; 80048; 80053; 82375; 82805; 82948; 83036; 83050; 83880; 85025; 85055; 87040; 87637; 93005; 93306; 94002; 94003; 94640; 96365; 96375; 99285; A9270; J0456; J0696; J1650; J1815; J1940; J2930; J7512